=== PATIENT | female | born 1945 | race Caucasian/White ===

== ENCOUNTER 2017-01-31 16:52 | Emergency (ER) | payer MEDICARE ==
[~2017-01-31] VITALS: Ht 162.6 cm; Wt 100.0 kg
[~2017-01-31 16:52] MED LIST: ACET325T11 PO; OMPR20CCR PO
[2017-01-31 17:02] VITALS: BP 193/84; PULSE 71; RESP 16; TEMP 98.4; O2SAT 96
--- NOTE | 2017-01-31 18:11 | PD ---
HPI Chief Complaint: Fall Time Seen by Provider: 17:48 Travel History International Travel<30 days: No Contact w/Intl Traveler<30days: No Traveled to known affect area: No History of Present Illness HPI 75-year-old white female here for a fall that occurred at 3:30 PM this afternoon. She is not on blood thinners. She said she and fell hit her head on tile, but did not lose consciousness. He says she has chronic neck pain with stiffness and follows chiropractor for her back. She says she tripped and fell and hit the right side of her face and started developing bruising of the right eye area. She says that the right eye has pressure but no significant pain. Her medical history includes a right TKA 4 years ago and recent cataract surgery within the last 2 months. She is concerned about her cataracts since the surgery was done recently. Denies blurred vision, lightheadedness, chest pain, shortness of breath, numbness or tingling, weakness, or increased pain in her back and neck. PFSH Past Medical History Hx Anticoagulant Therapy: No Cancer: No Cardiovascular Problems: No Diabetes: No Endocrine: No Genitourinary: No Hepatitis: No Hiatal Hernia: Yes Musculoskeletal: Yes (arthritis neck and back problems) Neurologic: No Psychiatric: No Respiratory: Yes (HX PNEUMONIA, HX FLUID IN LUNGS) Thyroid Disease: No Past Surgical History Body Medical Devices: INTRAUTERINE DEVICE Eye Surgery: Yes (tear duct repair right eye) Oral Surgery: Yes (tonsillectomy) Pacemaker: No Social History Tobacco Use: No Allergies-Medications (Allergen,Severity, Reaction): Coded Allergies: neomycin (Unverified Allergy, Severe, rash, 01/31/17) nitrous oxide (Verified Allergy, Severe, SWELLING, 01/31/17) Reported Meds & Prescriptions Reported Meds & Active Scripts Active Review of Systems Except as stated in HPI: all other systems reviewed are Neg Physical Exam Narrative GENERAL: Well-developed well-nourished in no apparent distress SKIN: Focused skin assessment warm/dry. Right periorbital region with ecchymosis without crepitus. HEAD: Normocephalic. No crepitus. She has ecchymosis over right eye with some mild swelling no crepitus. EYES: Pupils equal and round. No scleral icterus or injection. No injection or drainage. ENT: No nasal bleeding or discharge. Mucous membranes pink and moist. NECK: Trachea midline. No JVD. CARDIOVASCULAR: Regular rate and rhythm. No murmur appreciated. RESPIRATORY: No accessory muscle use. Clear to auscultation. Breath sounds equal bilaterally. GASTROINTESTINAL: Abdomen soft, non-tender, nondistended. MUSCULOSKELETAL: No obvious deformities. No clubbing. No cyanosis. No edema. Grade 5 out of 5 strength bilateral upper and lower extremities. Right knee has a small area of ecchymosis without crepitus. NEUROLOGICAL: Awake and alert. No obvious cranial nerve deficits. Motor grossly within normal limits. Normal speech. Sensation intact PSYCHIATRIC: Appropriate mood and affect; insight and judgment normal. Data Data Last Documented VS Vital Signs Date Time Temp Pulse Resp B/P (MAP) Pulse Ox O2 Delivery O2 Flow Rate FiO2 01/31/17 17:02 98.4 71 16 193/84 (120) [address] Brain W/O Iv Contrast(Rout) (01/31/17 ) Ct Cerv Spine W/O Contrast (01/31/17 ) Knee, Complete (4vws) (01/31/17 ) [facility] Medical Decision Making Medical Screen Exam Complete: Yes Emergency Medical Condition: Yes Differential Diagnosis Right orbit contusion versus fracture versus hematoma Right knee fracture versus displacement versus sprain Narrative Course 75-year-old white female here for a fall that occurred at 3:30 PM this afternoon. She is not on blood thinners. She said she and fell and did not lose consciousness. He says she has chronic neck pain with stiffness and follows chiropractor for her back. She says she tripped and fell and hit the right side of her face and started developing bruising of the right eye area. Her medical history includes a right TKA 4 years ago and recent cataract surgery within the last 2 months. She is concerned about her cataracts since the surgery was done recently. Denies blurred vision, lightheadedness, chest pain, shortness of breath, numbness or tingling, weakness, or increased pain in her back and neck. Physical exam revealed right periorbital ecchymosis, no fernandez signs or raccoon eye. CN II-XII grossly intact without deficits. Right knee demonstrated only small bruising. Imaging: Knee no acute process, Head and neck CT without acute process except soft tissue swelling. I advised pt to use cold compressed for her contusions. Advised pt that if swelling persists, she develops a headache, develops numbness /tingling that she should return to the ED. Diagnosis Primary Impression: Head contusion Qualified Codes: S00.11XA - Contusion of right eyelid and periocular area, initial encounter Additional Impression: Knee contusion Qualified Codes: S80.01XA - Contusion of right knee, initial encounter Referrals: Primary Care Physician Additional Instructions: Return to the emergency department if you develops any numbness or tingling of the extremities, dizziness, headache, or weakness. Follow up with your primary care physician for further treatment and evaluation. You may use a cold compress to reduce swelling around her eye. Recommend following up with the doctor who completed her cataract surgery to ensure stability. Disposition: 01 DISCHARGE HOME Condition: Stable Carlyn Elkins Jan 31, 2017 18:11
--- NOTE | 2017-01-31 18:50 | RADRPT ---
EXAM DATE/TIME: 01/31/2017 18:07 [facility] COMPARISON: No previous studies available for comparison. INDICATIONS : Right knee pain. MEDICAL HISTORY : None. SURGICAL HISTORY : Total knee replacement, right. ENCOUNTER: Initial ACUITY: 1 day PAIN SCORE: 4/10 LOCATION: Right knee. FINDINGS: The patient is status post total knee replacement. The prosthetic components appear well-placed. An a cute fracture is not seen. A significant effusion is not seen. CONCLUSION: No acute disease. Ryan Kerns MD on January 31, 2017 at 18:47 Board Certified Radiologist. This report was verified electronically.
--- NOTE | 2017-01-31 19:11 | RADRPT ---
EXAM DATE/TIME: 01/31/2017 18:27 [facility] COMPARISON: No previous studies available for comparison. INDICATIONS : Fall. Head and neck pain. RADIATION DOSE: 58.53 CTDIvol (mGy) MEDICAL HISTORY : Hernia, hiatal. Barretts Esophagus. SURGICAL HISTORY : Tonsillectomy. ENCOUNTER: Initial ACUITY: 1 day PAIN SCALE: 5/10 LOCATION: cranial TECHNIQUE: Multiple contiguous axial images were obtained of the head. Using automated exposure control and adj ustment of the mA and/or kV according to patient size, radiation dose was kept as low as reasonably a chievable to obtain optimal diagnostic quality images. DICOM format image data is available electro nically for review and comparison. FINDINGS: CEREBRUM: The ventricles are normal for age. No evidence of midline shift, mass lesion, hemorrhage or acute in farction. No extra-axial fluid collections are seen. POSTERIOR FOSSA: The cerebellum and brainstem are intact. The 4th ventricle is midline. The cerebellopontine angle i s unremarkable. EXTRACRANIAL: The visualized portion of the orbits is intact. There is right periorbital soft tissue swelling. SKULL: The calvaria is intact. No evidence of skull fracture. CONCLUSION: 1. No acute intracranial abnormality seen. 2. Right perirectal soft tissue swelling. Ryan Kerns MD on January 31, 2017 at 19:08 Board Certified Radiologist. This report was verified electronically.
--- NOTE | 2017-01-31 20:19 | RADRPT ---
EXAM DATE/TIME: 01/31/2017 18:27 [facility] COMPARISON: No previous studies available for comparison. INDICATIONS : Fall. Head and neck pain. RADIATION DOSE: 24.76 CTDIvol (mGy) MEDICAL HISTORY : Hernia, hiatal. Lugo's Esophagus. SURGICAL HISTORY : Tonsillectomy. ENCOUNTER: Initial ACUITY: 1 day PAIN SCALE: 5/10 LOCATION: Neck TECHNIQUE: Volumetric scanning of the cervical spine was performed. Multiplanar reconstructions i n the sagittal, coronal and oblique axial planes were performed. Using automated exposure control a nd adjustment of the mA and/or kV according to patient size, radiation dose was kept as low as reason ably achievable to obtain optimal diagnostic quality images. DICOM format image data is available e lectronically for review and comparison. FINDINGS: VERTEBRAE: There is a defect identified at the posterior arch of C1 in the midline. The edges are well corticated suggesting this is congenital. The anterior C1-C2 articulation is normal. The crani overtebral junction is intact. The cervical vertebral bodies are normal in height. ALIGNMENT: There is minimal 2 mm of anterior subluxation of C6 on C7 and C7 on T1. This is likely secondary to facet hypertrophy. C2-C3: Disc space is intact. There is no spinal stenosis and the neural foramina are normal. There is mild facet hypertrophy. C3-C4: Disc space is intact. There is no spinal stenosis and the neural foramina are normal. There is facet hypertrophy particularly on the left. There is mild impression on the left neural foramina from the facet hypertrophy. The right neural foramen is patent. C4-C5: Posterior disc margin is intact. Significant spinal stenosis is not appreciated. There is le ft-sided facet hypertrophy. Significant narrowing of the neural foramina is not seen. C5-C6: Disc demonstrates decreased height. There is mild posterior osteophytic ridging. Significant spinal stenosis is not appreciated. There is uncovertebral hypertrophy seen bilaterally. There is mild facet hypertrophy. Neural foramina are grossly patent. C6-C7: Again noted is the minimal anterior subluxation of C6 on C7. Posterior disc margin appears g rossly intact. Significant spinal stenosis is not appreciated. There is bilateral facet hypertrophy being worse on the left. C7-T1: Again noted is the minimal anterior subluxation of C7 on T1. Significant stenosis is not linda reciated. The neural foramina are normal. There is bilateral facet hypertrophy. CONCLUSION: No acute abnormality is seen. There is chronic change as described above throughout the cervical spine. Ryan Kerns MD on January 31, 2017 at 19:49 Board Certified Radiologist. This report was verified electronically.
== END 2017-01-31 21:05 | disposition home or self-care (01) ==
LOC: PHEFT 16:52
DX: S00.11XA Contusion of right eyelid and periocular area, initial encounter (principal); S80.01XA Contusion of right knee, initial encounter; W01.0XXA Fall on same level from slipping, tripping and stumbling without subsequent striking against object, initial encounter
CPT/HCPCS: 70450; 72125; 73564; 99285